=== PATIENT | male | born 1930 | race Native Hawaiian/Other Pacific Islander ===

== ENCOUNTER 2016-09-26 10:27 | Inpatient (IN) | payer OTHER ==
[~2016-09-26] VITALS: Ht 167.6 cm; Wt 78.5 kg
[~2016-09-26 10:27] MED LIST: NEXIUM40 M1 PO; WARF5TAB6 PO; WELCHOL625 MG PO
[2016-09-26 11:14] VITALS: BP 120/67; TEMP 97.9; Ht 167.6 cm; Wt 78.5 kg
[2016-09-26 11:58] LABS: PLATELET COUNT 203 K/uL (142-355)
[2016-09-26 12:00] VITALS: BP 120/67; TEMP 97.9
[2016-09-26 16:00] VITALS: BP 121/61; TEMP 97.6
[2016-09-26 20:08] VITALS: BP 165/83; TEMP 98
[2016-09-27 00:16] VITALS: BP 154/87; TEMP 97.8
[2016-09-27 04:00] VITALS: BP 138/77; BP 165/83; TEMP 97.7; TEMP 98
[2016-09-27 04:47] LABS: PLATELET COUNT 216 K/uL (142-355)
[2016-09-27 05:11] LABS: POTASSIUM 4.1 mmol/L (3.6-5.2)
[2016-09-27 08:00] VITALS: BP 153/91; TEMP 97.6
[2016-09-27 12:00] VITALS: BP 133/69; TEMP 98
[2016-09-27 16:00] VITALS: BP 123/58; TEMP 97.6
[2016-09-27 20:20] VITALS: BP 117/56; TEMP 97.3
[2016-09-28] VITALS: BP 101/49; TEMP 98.6
[2016-09-28 04:00] VITALS: BP 123/66; TEMP 97.9
[2016-09-28 04:41] LABS: PLATELET COUNT 238 K/uL (142-355)
[2016-09-28 05:01] LABS: POTASSIUM 4.2 mmol/L (3.6-5.2)
[2016-09-28 08:00] VITALS: BP 140/74; TEMP 97.7
[2016-09-28 12:00] VITALS: BP 164/94; TEMP 97.5
[2016-09-28 16:00] VITALS: BP 130/63; TEMP 97.4
[2016-09-28 20:00] VITALS: BP 148/69; TEMP 97.7
[2016-09-29 00:12] VITALS: BP 140/67; TEMP 97.8
[2016-09-29 04:00] VITALS: BP 156/82; TEMP 97.8
[2016-09-29 04:32] LABS: PLATELET COUNT 248 K/uL (142-355)
[2016-09-29 04:51] LABS: POTASSIUM 4.1 mmol/L (3.6-5.2)
[2016-09-29 07:57] VITALS: BP 159/79; TEMP 97.6
[2016-09-29 12:00] VITALS: BP 138/73; TEMP 98.2
[2016-09-29 16:00] VITALS: BP 131/70; TEMP 98
[2016-09-29 20:21] VITALS: BP 129/66; TEMP 97.8
[2016-09-30] VITALS: BP 153/78; TEMP 97.7
[2016-09-30 04:00] VITALS: BP 150/81; TEMP 98.7
[2016-09-30 05:20] LABS: PLATELET COUNT 245 K/uL (142-355)
[2016-09-30 05:38] LABS: POTASSIUM 4.3 mmol/L (3.6-5.2)
[2016-09-30 08:13] VITALS: BP 163/86; TEMP 97.9
[2016-09-30 12:00] VITALS: BP 164/88; TEMP 98.3
[2016-09-30 16:54] VITALS: BP 155/88; TEMP 97.8
[2016-10-01] MEDS ORDERED: TAMS0.4C PO (08:07)
== END 2016-09-30 18:20 | disposition home or self-care (01) | DRG 178 ==
LOC: MED/SURG 10:27
PROVIDERS: Emergency Medicine; ADMIT Nurse Practitioner
DX: J15.211 Pneumonia due to Methicillin susceptible Staphylococcus aureus (principal); N39.0 Urinary tract infection, site not specified
CPT/HCPCS: 36415; 51702; 80053; 81000; 83735; 83880; 85027; 85610; 87040; 87070; 87077; 87185; 87186; 87205; 93005; 94640; 94664; 94760; 96365; 96366; 96367; 96375; J1940; J2920; J2930; J3475

== ENCOUNTER 2016-10-01 07:33 | Emergency (ER) | payer OTHER ==
[~2016-10-01] VITALS: Ht 167.6 cm; Wt 78.5 kg
[2016-10-01 07:40] VITALS: BP 172/82; TEMP 98.3
[2016-10-01] MEDS ORDERED: TAMS0.4C PO (08:07)
== END 2016-10-01 09:58 | disposition home or self-care (01) ==
LOC: ED 07:33
PROC: 0T9B70Z Drainage of Bladder with Drainage Device, Via Natural or Artificial Opening (ICD-10-PCS; principal; 2016-10-01)
DX: R33.8 Other retention of urine (principal); R30.0 Dysuria
CPT/HCPCS: 51702; 81000; 99283

== ENCOUNTER 2017-03-02 15:44 | Outpatient (CLI) | payer OTHER ==
[~2017-03-02 15:44] MED LIST changes: +TAMS0.4C PO
[2017-03-02] MEDS ORDERED: MECLIZINE25 M1 OR (16:28)
[2017-03-02] MEDS ORDERED: CIPRO250 MG PO (16:29)
== END 2017-03-02 15:51 | disposition short-term general hospital (02) ==
LOC: AMB 15:44
DX: R40.20 Unspecified coma (principal)
CPT/HCPCS: A0425; A0427

== ENCOUNTER 2017-03-02 15:56 | Emergency (ER) | payer OTHER ==
[~2017-03-02] VITALS: Ht 170.2 cm; Wt 80.7 kg
[2017-03-02 16:26] LABS: PLATELET COUNT 189 K/uL (142-355)
[2017-03-02] MEDS ORDERED: MECLIZINE25 M1 OR (16:28)
[2017-03-02] MEDS ORDERED: CIPRO250 MG PO (16:29)
[2017-03-02 16:30] LABS: POTASSIUM 4.1 mmol/L (3.6-5.2)
[2017-03-02 16:52] LABS: PARTIAL THROMBOPLASTIN TIME 38.5 SECONDS (24.5-33.6)
[2017-03-02 18:47] VITALS: BP 153/87; TEMP 97.6
== END 2017-03-02 18:50 | disposition home or self-care (01) ==
LOC: ED 15:56
PROVIDERS: Emergency Medicine
DX: G45.8 Other transient cerebral ischemic attacks and related syndromes (principal); D68.69 Other thrombophilia; R79.1 Abnormal coagulation profile
CPT/HCPCS: 80053; 82550; 84484; 85027; 85610; 85730; 93005; 96372; 99284

== ENCOUNTER 2017-08-11 15:13 | Emergency (ER) | payer OTHER ==
[~2017-08-11] VITALS: Ht 167.6 cm; Wt 81.6 kg
[~2017-08-11 15:13] MED LIST changes: +CIPRO250 MG PO; +MECLIZINE25 M1 OR
[2017-08-11 15:28] VITALS: TEMP 98.36
[2017-08-11 16:45] VITALS: BP 138/79
== END 2017-08-11 16:45 | disposition home or self-care (01) ==
LOC: ED 15:13
DX: S63.693A Other sprain of left middle finger, initial encounter (principal); S63.695A Other sprain of left ring finger, initial encounter; W18.39XA Other fall on same level, initial encounter; Y92.89 Other specified places as the place of occurrence of the external cause
CPT/HCPCS: 99282